=== PATIENT | female | born 1935 | race Caucasian/White ===

== ENCOUNTER → 2023-03-23 | Emergency (ER) | payer OTHER ==
[~2023-03-23] VITALS: Ht 152.4 cm; Wt 45.4 kg
[~2023-03-23] MED LIST: ALEVE220 M1 PO; ATORVASTATIN CA10 MG PO; CEFADROXIL500 MG PO; CLOTRIMAZOLE-BE15 G1 TP; DONEPEZIL HCL5 MG PO; LISINOPRIL5 MG PO; MEMANTINE HCL5 MG PO; METFORMIN HCL500 M4 PO; METFORMIN HCL500 MG; MOTRIN600 MG PO; PERCOCET 5/321 UDTAB PO; QUETIAPINE FUMA25 MG PO; TYLENOL PM EX-1 EAC1; ZOCOR5 MG
== END | disposition home or self-care (01) ==
LOC: ER 13:32
DX: M25.562 Pain in left knee (principal); G30.9 Alzheimer's disease, unspecified; F02.80 Dementia in other diseases classified elsewhere, unspecified severity, without behavioral disturbance, psychotic disturbance, mood disturbance, and anxiety

== ENCOUNTER 2023-03-25 12:21 | Outpatient (CLI) | payer OTHER | END 2023-03-25 12:27 | disposition home or self-care (01) | LOC: RAD 12:21 | PROVIDERS: ATTEND Orthopaedic Surgery | DX: M25.562 Pain in left knee (principal) ==